=== PATIENT | female | born 1955 | race American Indian/Alaskan Native ===

== ENCOUNTER 2017-11-13 16:49 | Emergency (ER) | payer OTHER ==
[2017-11-13 17:08] VITALS: BP 80/52
[2017-11-13 17:44] LABS: Hemoglobin 12.8 gm/dl (10.1-14.3); Mean Corpuscular HGB Conc 34 % (30-34); Mean Corpuscular Hemoglobin 29 pg (28-32); Mean Corpuscular Volume 85 fl (79-97); Platelet Count 167 K/mm3 (140-440); Red Blood Count 4.47 M/mm3 (3.65-5.03); Red Cell Distribution Width 14.2 % (13.2-15.2)
[2017-11-13 17:55] LABS: Alanine Aminotransferase 76 units/L (7-56); Albumin 3.4 g/dL (3.9-5); BUN/Creatinine Ratio 6; Blood Urea Nitrogen 3 mg/dL (7-17); Calcium 9.1 mg/dL (8.4-10.2); Hemolysis Index 9
== END 2017-11-13 17:25 | disposition left against medical advice (07) ==
LOC: ED 16:49
DX: R42 Dizziness and giddiness (principal); Z53.21 Procedure and treatment not carried out due to patient leaving prior to being seen by health care provider
CPT/HCPCS: 36415; 80053; 85027

== ENCOUNTER 2017-11-19 22:02 | Emergency (ER) | payer OTHER ==
[2017-11-20 01:44] LABS: Eosinophils # (Auto) 0.1 K/mm3 (0.0-0.4); Eosinophils % (Auto) 1.8 % (0.0-4.3); Hematocrit 35.6 % (30.3-42.9); Hemoglobin 11.8 gm/dl (10.1-14.3); Lymphocytes # (Auto) 0.9 K/mm3 (1.2-5.4); Lymphocytes % (Auto) 27.9 % (13.4-35.0); Mean Corpuscular HGB Conc 33 % (30-34); Mean Corpuscular Hemoglobin 29 pg (28-32); Mean Corpuscular Volume 86 fl (79-97); Monocytes # (Auto) 0.3 K/mm3 (0.0-0.8); Monocytes % (Auto) 8.1 % (0.0-7.3); Platelet Count 170 K/mm3 (140-440); Red Blood Count 4.13 M/mm3 (3.65-5.03); Red Cell Distribution Width 14.2 % (13.2-15.2)
[2017-11-20] MEDS ORDERED: NACL 0.9% 1000 ML 1,000 ML IV ONE (01:50)
[2017-11-20 01:57] LABS: BUN/Creatinine Ratio 23; Blood Urea Nitrogen 9 mg/dL (7-17); Calcium 9.3 mg/dL (8.4-10.2); Hemolysis Index 27
--- NOTE | 2017-11-20 02:30 | Emergency Department Report ---
HPI - General Chief Complaint: Skin/Abscess/Foreign Body Time Seen by Provider: 11/20/17 01:40 - HPI HPI: The patient is a 61-year-old female with a history of throat cancer and low setting G-tube placement, and who presents for evaluation of dislodgment of her G-tube . She says that her G-tube came out approximately 2-3 hours ago. The patient denies fever, chills, night sweats, headache, chest pain, dyspnea, abdominal pain, nausea, vomiting, and dysuria, diarrhea, blood in the stool, dark tarry stool, flank pain, genital discharge, inability to pass flatus. She has no pain or complaints otherwise. ED Past Medical Hx - Past Medical History Hx of Cancer: Yes (Esophageal) Additional medical history: Throat CA - Surgical History Additional Surgical History: Port placement, PEG placement - Social History Smoking Status: Former Smoker Substance Use Type: None ED Review of Systems ROS: Stated complaint: FEEDING TUBE FELL OUT Other details as noted in HPI Constitutional: denies: fever ENT: denies: throat or neck pain Respiratory: denies: cough, shortness of breath Cardiovascular: denies: chest pain Endocrine: denies unexplained weight loss or gain Gastrointestinal: denies: abdominal pain, nausea Genitourinary: denies: dysuria Musculoskeletal: denies: leg swelling Skin: denies: rash Neurological: denies: headache Hematological/Lymphatic: denies: easy bleeding or easy bruising Psych: denies sadness or hopelessness Physical Exam - Physical Exam Vital Signs: Vital Signs 11/20/17 11/20/17 00:50 01:00 Temperature 97.7 F 97.7 F Pulse Rate 73 73 Respiratory 16 20 Rate Blood Pressure 81/44 [Left] O2 Sat by Pulse 96 100 Oximetry Physical Exam: General: well-nourished, well-developed, no acute distress Head: Normocephalic, atraumatic Eyes: normal sclera ENT: Mucous membranes are pale and dry Neck: trachea midline, neck supple, No neck stiffness, no cervical adenopathy Respiratory: Breath sounds equal bilaterally, no wheezing, rales, or rhonchi Cardio: S1 and S2 present, no murmurs, rubs, gallops, capillary refill is delayed Abdomen: Normoactive bowel sounds, soft abdomen, no tenderness, G-tube insertion site present to mid upper abdomen Musc: No pitting edema Skin: No rash Neuro: no facial drooping, normal speech Psych: Normal affect ED Course Vital Signs 11/20/17 11/20/17 00:50 01:00 Temperature 97.7 F 97.7 F Pulse Rate 73 73 Respiratory 16 20 Rate Blood Pressure 81/44 [Left] O2 Sat by Pulse 96 100 Oximetry ED Medical Decision Making - Lab Data Result diagrams: 11/20/17 01:13 11/20/17 01:13 - Medical Decision Making The patient was seen and examined by myself. The patient is placed on a director process engineering and continuous pulse ox. On initial evaluation, the patient was found to be in no distress, with low blood pressure although secondary to her dehydration. Evaluation orders were placed. The patient is given 1 L normal saline fluid bolus for treatment of her dehydration. A new G-tube was inserted. KUB with contrast was obtained and confirmed placement of G-tube. The patient was reevaluated and reported that their symptoms were markedly improved. The patient is stable for discharge with outpatient follow-up. The patient is given follow-up and return instructions. The patient expressed understanding and agreed with the plan. The patient is discharged in stable condition. Critical care attestation.: If time is entered above; I have spent that time in minutes in the direct care of this critically ill patient, excluding procedure time. ED Disposition Clinical Impression: Gastrojejunostomy tube dislodgement, Dehydration, Hypovolemia due to dehydration Disposition: - TO HOME OR SELFCARE Is pt being admited?: No Does the pt Need Aspirin: No Condition: Stable Instructions: Tube Feeding (ED) Referrals: PRIMARY CARE, [Primary Care Provider] - 3-5 Days Time of Disposition: 02:29
--- NOTE | 2017-11-20 04:02 | XRay Report ---
FINAL REPORT PROCEDURE: XR G-TUBE STUDY TECHNIQUE: Abdominal radiograph, single supine AP view. HISTORY: Post g-tube placement COMPARISON: No prior studies are available for comparison. FINDINGS: There is a percutaneous gastrostomy tube. Contrast is injected into the tube which collects in the stomach. There is no leakage or loosening. There is no gastric outlet obstruction. IMPRESSION: Percutaneous gastrostomy tube is in proper position and patent.
[2017-11-20 05:24] VITALS: BP 91/56
== END 2017-11-20 05:25 | disposition home or self-care (01) ==
LOC: ED 22:02
DX: K94.23 Gastrostomy malfunction (principal); E86.0 Dehydration; E86.1 Hypovolemia; Z87.891 Personal history of nicotine dependence; Z85.01 Personal history of malignant neoplasm of esophagus
CPT/HCPCS: 36415; 43760; 74018; 80048; 85025; 96360; 96361; 99284; J7030; Q9963

== ENCOUNTER 2018-11-04 00:21 | Emergency (ER) | payer OTHER ==
[2018-11-04 00:36] VITALS: BP 120/77
[2018-11-04] MEDS ORDERED: XYLOCAINE TOPICAL 4% TP ONE (01:14)
--- NOTE | 2018-11-04 01:17 | Emergency Department Report ---
ED General Adult HPI - General Chief complaint: Tube Replacement Stated complaint: FEEDING TUBE MALFUNCTION Time Seen by Provider: 11/04/18 00:53 Source: patient, RN notes reviewed, old records reviewed Mode of arrival: Ambulatory Limitations: No Limitations - History of Present Illness Initial comments: This is a 62-year-old female. Her past medical history includes esophageal cancer. She is dependent on tube feedings. Also has a history of malnutrition. Patient is visiting from [place]. She does not have a local physician that cares for her. She presents to the emergency room with a complaint of accidental dislodgment of feeding tube. The patient does not know what size Iranian feeding tube she has. The patient also endorses discoloration to the bilateral lower extremities for 1 month. She also endorses lower extremity swelling for 1 month. She denies other injuries, denies other complaints. -: Sudden Severity scale (0 -10): 0 Consistency: now resolved Improves with: other (a feeding tube was reinserted in the emergency room, and this resolved the patient's complaint of dislodged feeding tube) - Related Data Home Medications Medication Instructions Recorded Confirmed Last Taken No Known Home Medications [No 02/23/18 02/23/18 Unknown Reported Home Medications] Allergies Allergy/AdvReac Type Severity Reaction Status Date / Time No Known Allergies Allergy Verified 02/23/18 04:27 ED Review of Systems ROS: Stated complaint: FEEDING TUBE MALFUNCTION Other details as noted in HPI Constitutional: denies: fever, malaise ENT: denies: epistaxis Respiratory: denies: cough Cardiovascular: denies: chest pain Gastrointestinal: denies: abdominal pain Genitourinary: denies: dysuria Musculoskeletal: other (lower extremity swelling. Hyperpigmentation to the bilateral lower extremities) Skin: rash Neurological: denies: headache ED Past Medical Hx - Past Medical History Previous Medical History?: Yes Additional medical history: Throat CA - Surgical History Additional Surgical History: Port placement, PEG placement - Social History Smoking Status: Current Every Day Smoker Substance Use Type: None - Medications Home Medications: Home Medications Medication Instructions Recorded Confirmed Last Taken Type No Known Home Medications [No 02/23/18 02/23/18 Unknown History Reported Home Medications] ED Physical Exam - General Limitations: No Limitations General appearance: alert, in no apparent distress - Head Head exam: Present: atraumatic, normocephalic - Eye Eye exam: Present: normal appearance, EOMI. Absent: nystagmus - ENT ENT exam: Present: normal exam, normal orophraynx, mucous membranes moist, normal external ear exam - Neck Neck exam: Present: normal inspection, full ROM. Absent: tenderness, meningismus - Respiratory Respiratory exam: Present: normal lung sounds bilaterally. Absent: respiratory distress - Cardiovascular Cardiovascular Exam: Present: regular rate, normal rhythm, normal heart sounds. Absent: bradycardia, tachycardia, irregular rhythm, systolic murmur, diastolic murmur, rubs, gallop - GI/Abdominal GI/Abdominal exam: Present: soft, other (stoma is noted in the left lower quadrant, with no redness, pus or streaking.). Absent: distended, tenderness, guarding, rebound, rigid, pulsatile mass - Extremities Exam Extremities exam: Present: normal inspection (hyperpigmentation and scaly skin noted to the lower extremities. There is no redness, pus or streaking.), full ROM, pedal edema, other (extremities). Absent: calf tenderness - Back Exam Back exam: Present: normal inspection, full ROM. Absent: tenderness, CVA tenderness (R), CVA tenderness (L), paraspinal tenderness, vertebral tenderness - Neurological Exam Neurological exam: Present: alert, normal gait, other (Extraocular movements intact. Tongue midline. No facial droop. Facial sensation intact to light touch in the V1, V2, V3 distribution bilaterally. 5 and 5 strength in 4 extremities.. Sensation is intact to light touch in 4 extremities.) - Psychiatric Psychiatric exam: Present: normal affect, normal mood - Skin Skin exam: Present: warm, dry, intact, normal color. Absent: rash ED Course Vital Signs 11/04/18 00:35 Temperature 97.8 F Pulse Rate 88 Respiratory 18 Rate Blood Pressure 120/77 [Left] O2 Sat by Pulse 99 Oximetry - Procedure Description Procedures done: Stoma is cleansed with alcohol swabs and typical aseptic fashion. A 16 Iranian feeding tube is gently inserted through the stoma, after liberal application of sterile jelly. Stoma is inserted with minimal effort, and balloon is inflated with 7 mL of sterile saline. Postprocedure x-ray confirms appropriate placement. The patient tolerated this procedure adequately. ED Medical Decision Making - Lab Data Vital Signs 11/04/18 00:35 Temperature 97.8 F Pulse Rate 88 Respiratory 18 Rate Blood Pressure 120/77 [Left] O2 Sat by Pulse 99 Oximetry - Radiology Data Radiology results: report reviewed, image reviewed Print Report Referring Physician: SUMAN ALCARAZ Patient Name: SUSHILA LORENZ Date of : 1955 Sex: Female Report Date: 2018-11-04 Report Status: Finalized Findings [facility] [address] [id number] XRay Report Signed Patient: SUSHILA LORENZ MR#: [id number] : 1955 Acct:[id number] Age/Sex: 62 / F ADM Date: 11/04/18 Loc: ED Attending Dr: Ordering Physician: SUMAN ALCARAZ MD Date of Service: 11/04/18 Procedure(s): XR g-tube study Accession Number(s): [id number] cc: SUMAN ALCARAZ MD Fluoro Time In Minutes: 0.0 PROCEDURE: Abdomen. TECHNIQUE: Portable AP supine views of the abdomen before and after contrast injection. HISTORY: s/p tube placement COMPARISONS: Abdomen 11/20/2017. FINDINGS: On the first radiograph there is a gastrostomy tube in the left upper quadrant. On the second radiograph contrast outlines the stomach and a portion of the duodenum. IMPRESSION: Satisfactory gastrostomy tube placement. This document is electronically signed by Suman Garza MD., November 04 2018 02:07:02 AM ET Transcribed By: [facility] Dictated By: SUMAN GARZA MD Electronically Authenticated By: SUMAN GARZA MD Signed Date/Time: 11/04/18 0208 - Medical Decision Making Differential diagnosis, including but not limited to: Feeding tube replacement, chronic edema, hyperpigmentation Assessment and plan: 62-year-old female with a primary complaint tube dislodgment. This has been corrected. She has secondary endorsement of lower extremity swelling and skin plaques and crusting, present for weeks. She is not tachycardic, she is not hypoxic, her lower extremity swelling is symmetric, and appears to be edematous in nature. Her lower extremity complaints. To be chronic in nature. They do not appear to represent an emergent medical condition. The patient was counseled to follow up with an outpatient primary care doctor or electrical sign servicer for outpatient management of tube feedings. She can follow up with the primary care doctor for her chronic lower extremity complaints. Critical care attestation.: If time is entered above; I have spent that time in minutes in the direct care of this critically ill patient, excluding procedure time. ED Disposition Clinical Impression: Encounter for feeding tube placement Disposition: DC- TO HOME OR SELFCARE Is pt being admited?: No Does the pt Need Aspirin: No Condition: Stable Additional Instructions: Continue current outpatient medications. Follow up with the primary care doctor for outpatient management of chronic lower extremity swelling and discoloration. Follow up with a electrical sign servicer for outpatient management of feeding tube. Return to the emergency room right away with him, worsened or different symptoms, or symptoms not present on the initial emergency room evaluation. Referrals: BRISA ASH MD [Primary Care Provider] - 3-5 Days [facility] [Provider Group] - 3-5 Days [facility] [Provider Group] - 3-5 Days
--- NOTE | 2018-11-04 02:08 | XRay Report ---
PROCEDURE: Abdomen. TECHNIQUE: Portable AP supine views of the abdomen before and after contrast injection. HISTORY: s/p tube placement COMPARISONS: Abdomen 11/20/2017. FINDINGS: On the first radiograph there is a gastrostomy tube in the left upper quadrant. On the second radiogr aph contrast outlines the stomach and a portion of the duodenum. IMPRESSION: Satisfactory gastrostomy tube placement. This document is electronically signed by Suman Ventura MD., November 04 2018 02:07:02 AM ET
== END 2018-11-04 02:36 | disposition home or self-care (01) ==
LOC: ED 00:21
DX: K94.23 Gastrostomy malfunction (principal); F17.200 Nicotine dependence, unspecified, uncomplicated
CPT/HCPCS: 74018; 99283; Q9963

== ENCOUNTER 2019-06-13 22:39 | Emergency (ER) | payer SELFPAY ==
--- NOTE | 2019-06-14 02:19 | Emergency Department Report ---
ED General Adult HPI - General Chief complaint: Tube Replacement Stated complaint: STOMACH PAIN FEEDING TUBE Time Seen by Provider: 06/14/19 01:36 Source: patient Mode of arrival: Ambulatory Limitations: No Limitations - History of Present Illness Initial comments: 63 yo F, hx esophageal cancer presents to ED because PEG tube came out 30 minutes prior to arrival. -: minutes(s) (30) Location: abdomen Associated Symptoms: denies other symptoms - Related Data Home Medications Medication Instructions Recorded Confirmed Last Taken No Known Home Medications [No 02/23/18 02/23/18 Unknown Reported Home Medications] Allergies Allergy/AdvReac Type Severity Reaction Status Date / Time No Known Allergies Allergy Verified 02/23/18 04:27 ED Review of Systems ROS: Stated complaint: STOMACH PAIN FEEDING TUBE Other details as noted in HPI Comment: All other systems reviewed and negative Constitutional: denies: chills, fever Gastrointestinal: denies: abdominal pain ED Past Medical Hx - Past Medical History Previous Medical History?: Yes Additional medical history: Throat CA - Surgical History Past Surgical History?: Yes Additional Surgical History: Port placement, PEG placement - Social History Smoking Status: Current Some Day Smoker Substance Use Type: None - Medications Home Medications: Home Medications Medication Instructions Recorded Confirmed Last Taken Type No Known Home Medications [No 02/23/18 02/23/18 Unknown History Reported Home Medications] ED Physical Exam - General Limitations: No Limitations General appearance: alert, in no apparent distress - Head Head exam: Present: atraumatic, normocephalic - Eye Eye exam: Present: normal appearance - ENT ENT exam: Present: mucous membranes moist - Neck Neck exam: Present: normal inspection - Respiratory Respiratory exam: Present: normal lung sounds bilaterally. Absent: respiratory distress - Cardiovascular Cardiovascular Exam: Present: regular rate, normal rhythm - GI/Abdominal GI/Abdominal exam: Present: soft, other (gastrostomy present in LUQ). Absent: distended, tenderness - Extremities Exam Extremities exam: Present: normal inspection - Neurological Exam Neurological exam: Present: alert, oriented X3 - Psychiatric Psychiatric exam: Present: normal affect, normal mood - Skin Skin exam: Present: warm, dry, intact, normal color ED Course Vital Signs 06/13/19 06/14/19 22:46 01:40 Temperature 97.9 F 98.3 F Pulse Rate 90 85 Respiratory 20 16 Rate Blood Pressure 104/66 Blood Pressure 112/60 [Left] O2 Sat by Pulse 98 98 Oximetry - Feeding Tube Replacement Reason for Replacement: fell out Initial Tube Inserted: greater than 4 weeks Type of Tube: gastrostomy Use of Tube: medications and feeding Insertion Site Prior to Procedure: clean Tube Used for Reinsertion: other (16F PEG tube) Luxembourgish Tube Size (F): 16 Balloon Size (mls): 3 Verification of Placement: gastrograffin injection Tube Secured by: G-tube attachment device Patient Tolerated Procedure: well Critical care attestation.: If time is entered above; I have spent that time in minutes in the direct care of this critically ill patient, excluding procedure time. ED Disposition Clinical Impression: Encounter for feeding tube placement Disposition: - TO HOME OR SELFCARE Is pt being admited?: No Condition: Stable Instructions: How to Use and Care for Your PEG Tube (ED) Referrals: PRIMARY CARE, [Referring] - 3-5 Days Time of Disposition: 03:01
--- NOTE | 2019-06-14 02:54 | XRay Report ---
ABDOMEN 2 VIEW(S) INDICATION / CLINICAL INFORMATION: PEG replacement. COMPARISON: G-tube study from 11/04/2018 FINDINGS: TUBES / LINES: Gastric tube was injected with 30 mL of Gastrografin. There is intraluminal contrast w ithin the stomach and duodenum with no contrast extravasation. BOWEL GAS PATTERN: Moderate colonic stool burden suggesting constipation. FREE AIR / EXTRALUMINAL GAS: None seen. ADDITIONAL FINDINGS: No significant additional findings. IMPRESSION: 1. Intraluminal tip of the gastric tube. 2. Findings of constipation. Signer Name: Shaka Martinez MD Signed: 06/14/2019 2:50 AM Workstation Name: [id number]
[2019-06-14 04:20] VITALS: BP 99/55
== END 2019-06-14 03:30 | disposition home or self-care (01) ==
LOC: ED 22:39
DX: Z43.1 Encounter for attention to gastrostomy (principal); Z85.01 Personal history of malignant neoplasm of esophagus; F17.200 Nicotine dependence, unspecified, uncomplicated
CPT/HCPCS: 43762; 74018; 99282; Q9963

== ENCOUNTER 2019-06-14 06:47 | Emergency (ER) | payer SELFPAY ==
[2019-06-14] MEDS ORDERED: LIDOCAINE VISCOUS 2% 15 ML ORAL LIQD ONE (09:19)
--- NOTE | 2019-06-14 09:35 | Emergency Department Report ---
<MAURICE GOMEZ - Last Filed: 06/14/19 10:16> ED General Adult HPI - General Chief complaint: Tube Replacement Stated complaint: FEEDING TUBE CAME OUT Time Seen by Provider: 06/14/19 09:28 - Related Data Home Medications Medication Instructions Recorded Confirmed Last Taken No Known Home Medications [No 02/23/18 02/23/18 Unknown Reported Home Medications] Allergies Allergy/AdvReac Type Severity Reaction Status Date / Time No Known Allergies Allergy Verified 02/23/18 04:27 ED Past Medical Hx - Medications Home Medications: Home Medications Medication Instructions Recorded Confirmed Last Taken Type No Known Home Medications [No 02/23/18 02/23/18 Unknown History Reported Home Medications] ED Disposition Clinical Impression: Encounter for feeding tube placement, Complication of feeding tube Disposition: - TO HOME OR SELFCARE Condition: Stable Instructions: How to Use and Care for Your PEG Tube (ED) Referrals: [facility] [Provider Group] - 3-5 Days <HANY JONES - Last Filed: 06/14/19 11:34> ED General Adult HPI - General Source: patient Mode of arrival: Ambulatory Limitations: No Limitations - History of Present Illness Initial comments: 63-year-old asthmatic female with a reported past medical history of throat cancer utilization of feeding tube present emergency department complaining of a feeding tube dislodgment of unspecified time. She states that she she had the tube placed yesterday or very corporate strategy intern and when she gotten home and attempted to remove the tape which had dislodged feeding tube. She reports having had a history of feeding tube however the duration was not normal and she had it replaced initially anywhere from 4 or more weeks ago. She reports no abdominal pain. Portable fever, chills, sweats or chest pain no diarrhea no nausea no vomiting. -: Sudden Radiation: non-radiation Improves with: none Worsens with: none Associated Symptoms: denies other symptoms Treatments Prior to Arrival: none ED Review of Systems ROS: Stated complaint: FEEDING TUBE CAME OUT Other details as noted in HPI Comment: All other systems reviewed and negative ED Past Medical Hx - Past Medical History Previous Medical History?: Yes Additional medical history: Throat CA - Surgical History Past Surgical History?: Yes Additional Surgical History: Port placement, PEG placement - Social History Smoking Status: Light Tobacco Smoker Substance Use Type: None ED Physical Exam - General Limitations: No Limitations General appearance: alert, in no apparent distress - Head Head exam: Present: atraumatic, normocephalic - Eye Eye exam: Present: normal appearance, PERRL, EOMI Pupils: Present: normal accommodation - ENT ENT exam: Present: mucous membranes moist - Neck Neck exam: Present: normal inspection - Respiratory Respiratory exam: Present: normal lung sounds bilaterally. Absent: respiratory distress - Cardiovascular Cardiovascular Exam: Present: regular rate, normal rhythm. Absent: systolic murmur, diastolic murmur, rubs, gallop - GI/Abdominal GI/Abdominal exam: Present: soft, normal bowel sounds - Extremities Exam Extremities exam: Present: normal inspection - Back Exam Back exam: Present: normal inspection. Absent: CVA tenderness (R), CVA tenderness (L) - Neurological Exam Neurological exam: Present: alert, oriented X3, CN II-XII intact - Psychiatric Psychiatric exam: Present: normal affect, normal mood - Skin Skin exam: Present: warm, dry, intact, normal color. Absent: rash ED Course Vital Signs 06/14/19 06:55 Temperature 97.9 F Pulse Rate 102 H Respiratory 18 Rate Blood Pressure 121/72 O2 Sat by Pulse 98 Oximetry - Reevaluation(s) Reevaluation #1: 06/14/19 09:18 Discussed the case with Dr. Gomez the attending with attempted to place the f eeding tube was unsuccessful on 2 attempts. A lot of resistance was met. No bleeding no wound discharge plan is to consult with GI for further evaluation and treatment options - Consultations Consultation #1: 06/14/19 09:34 Call back from her neurologist whom has been made aware of inability to replace the feeding tube. The patient's name and phone number was provided along with a history of the plan is for them to come see the patient at bedside to devise a plan to replace the feeding tube ED Medical Decision Making - Lab Data Result diagrams: 06/14/19 09:59 06/14/19 09:59 - Medical Decision Making 8-year-old female is status post PEG tube replacement earlier this morning or yesterday. Presents emergency department due to a accidental dislodgment. The ED physician Dr. Gomez try to replace the feeding tube was unsuccessful at the 2 attempts. Gastric neurology was consulted and was able to reintroduce the PEG tube to his proper location and inflated the cuff. It is possible that the previous cuff was not inflated which may have led to the dislodgment. The procedure was tolerated well with no complications plan is to discharge home with follow-up Critical care attestation.: If time is entered above; I have spent that time in minutes in the direct care of this critically ill patient, excluding procedure time. ED Disposition Is pt being admited?: No Does the pt Need Aspirin: No
[2019-06-14 10:19] LABS: Basophils # (Auto) 0.1 K/mm3 (0.0-0.1); Eosinophils # (Auto) 0.2 K/mm3 (0.0-0.4); Eosinophils % (Auto) 3.8 % (0.0-4.3); Hematocrit 41.1 % (30.3-42.9); Hemoglobin 13.8 gm/dl (10.1-14.3); Lymphocytes # (Auto) 1.5 K/mm3 (1.2-5.4); Lymphocytes % (Auto) 26.6 % (13.4-35.0); Mean Corpuscular HGB Conc 34 % (30-34); Mean Corpuscular Volume 80 fl (79-97); Monocytes # (Auto) 0.4 K/mm3 (0.0-0.8); Monocytes % (Auto) 6.5 % (0.0-7.3); Platelet Count 229 K/mm3 (140-440); Red Blood Count 5.14 M/mm3 (3.65-5.03); Red Cell Distribution Width 13.8 % (13.2-15.2)
--- NOTE | 2019-06-14 10:24 | Gastroenterology Consultation ---
<TIMOTHY DEAN - Last Filed: 06/14/19 10:37> History of Present Illness - Reason for Consult Consult date: 06/14/19 dislodged PEG Requesting physician: MAURICE GOMEZ - History of Present Illness Patient is a 63 y/o female (lives in [place] but here visiting daughter) with PMH of esophageal cancer (s/p radiation/chemo/PEG) who presented to ED for dislodged PEG to which GI has been consulted (was seen here yesterday for similar complaint with G-tube replaced; G-tube study confirmed position). Patient reports she with removing PEG dressing this am ~0600 when the "tube just fell out". G-tube w/o inflated balloon noted after dislodgment per pt. She states she is able to tolerate small amount of PO intake but uses PEG for supplemental feedings. Denies fever, CP, Sob, wt loss, abd pain, N/V, or LGI symptoms. Upon exam, abdomen benign with prior PEG site w/o redness, swelling, odor, drainage, or bleeding. Past History Past Medical History: other (esophageal CA) Past Surgical History: Other (PEG, port placement) Social history: smoking Family history: no significant family history Medications and Allergies Allergies Allergy/AdvReac Type Severity Reaction Status Date / Time No Known Allergies Allergy Verified 02/23/18 04:27 Home Medications Medication Instructions Recorded Confirmed Last Taken Type No Known Home Medications [No 02/23/18 02/23/18 Unknown History Reported Home Medications] Active Meds: medications reviewed/updated as required Review of Systems - Review of Systems All systems: negative Gastrointestinal: other (dislodged PEG), no abdominal pain, no nausea, no vomiting Exam - Constitutional Vital Signs: Temp Pulse Resp BP Pulse Ox 97.9 F 102 H 18 121/72 98 06/14/19 06:55 06/14/19 06:55 06/14/19 06:55 06/14/19 06:55 06/14/19 06:55 General appearance: no acute distress - EENT Eyes: PERRL, EOM intact ENT: hearing intact - Respiratory Respiratory effort: normal - Cardiovascular Rhythm: regular - Gastrointestinal General gastrointestinal: Present: soft, non-tender, non-distended, normal bowel sounds - Neurologic Neurological: alert and oriented x3 - Labs CBC & Chem 7: 06/14/19 09:59 Lab Results: Laboratory Results - last 24 hr 06/14/19 09:59 WBC 5.6 RBC 5.14 H Hgb 13.8 Hct 41.1 MCV 80 MCH 27 L MCHC 34 RDW 13.8 Plt Count 229 Lymph % (Auto) 26.6 Canyon % (Auto) 6.5 Eos % (Auto) 3.8 Baso % (Auto) 1.0 Lymph # 1.5 Canyon # 0.4 Eos # 0.2 Baso # 0.1 Seg Neutrophils % 62.1 Seg Neutrophils # 3.5 Assessment and Plan 1.dislodged PEG 2.H/o esophageal CA (s/p radiation/chemo) -stoma w/o s/s of infection or bleeding -PEG replaced per Dr. Ballard with 16Fr G-tube using aseptic technique. Patient tolerated well. Position confirmed per auscultation. -split gauze dressing PRN -daily PEG care -okay to resume TFs -no further recommendations per GI standpoint -patient okay to be discharged home with f/u with primary GI upon returning home -will sign off, please call if needed <NAOMI BALLARD - Last Filed: 06/14/19 10:51> Exam - Constitutional Vital Signs: Temp Pulse Resp BP Pulse Ox 97.9 F 102 H 18 121/72 98 06/14/19 06:55 06/14/19 06:55 06/14/19 06:55 06/14/19 06:55 06/14/19 06:55 - Labs CBC & Chem 7: 06/14/19 09:59 06/14/19 09:59 Lab Results: Laboratory Results - last 24 hr 06/14/19 06/14/19 09:59 09:59 WBC 5.6 RBC 5.14 H Hgb 13.8 Hct 41.1 MCV 80 MCH 27 L MCHC 34 RDW 13.8 Plt Count 229 Lymph % (Auto) 26.6 Canyon % (Auto) 6.5 Eos % (Auto) 3.8 Baso % (Auto) 1.0 Lymph # 1.5 Canyon # 0.4 Eos # 0.2 Baso # 0.1 Seg Neutrophils % 62.1 Seg Neutrophils # 3.5 Sodium 141 Potassium 3.7 Chloride 102.7 Carbon Dioxide 22 Anion Gap 20 BUN 9 Creatinine 0.5 L Estimated GFR > 60 BUN/Creatinine Ratio 18 Glucose 101 H Calcium 10.0 Magnesium 1.90 Total Bilirubin 0.40 AST 18 ALT 17 Alkaline Phosphatase 104 Total Protein 7.8 Albumin 4.6 Albumin/Globulin Ratio 1.4 Assessment and Plan Patient seen and examined on 06/14/2019. Agree with A/P as stated. Bedside PEG replacement performed. Previous PEG site stoma examined and w/o s/o infection or bleeding. A new 16F replacement tube placed using aseptic technique. 7 cc saline placed to inflate the internal balloon. Auscultation of gurgling noise over the upper abdomen, confirmation of position. No immediate complications noted. Patient tolerated the procedure well.
[2019-06-14 10:41] LABS: Alanine Aminotransferase 17 units/L (7-56); Albumin 4.6 g/dL (3.9-5); BUN/Creatinine Ratio 18; Blood Urea Nitrogen 9 mg/dL (7-17); Hemolysis Index 15
[2019-06-14 10:59] LABS: Bilirubin,Direct < 0.2 mg/dL (0-0.2)
[2019-06-14 11:40] VITALS: BP 121/68
[2019-06-21] MEDS ORDERED: LIDOCAINE VISCOUS 2% 15 ML ORAL LIQD PO ONE (09:00)
== END 2019-06-14 11:40 | disposition home or self-care (01) ==
LOC: ED 06:47
DX: Z43.1 Encounter for attention to gastrostomy (principal); F17.200 Nicotine dependence, unspecified, uncomplicated; Z85.01 Personal history of malignant neoplasm of esophagus
CPT/HCPCS: 36415; 80048; 80076; 83735; 85025

== ENCOUNTER 2019-12-26 05:24 | Emergency (ER) | payer SELFPAY ==
--- NOTE | 2019-12-26 13:28 | Emergency Department Report ---
ED General Adult HPI - General Chief complaint: Tube Replacement Stated complaint: DISPLACED FEEDING TUBE Time Seen by Provider: 12/26/19 12:47 Source: patient Mode of arrival: Ambulatory Limitations: No Limitations - History of Present Illness Initial comments: Patient is 64 years old female presented to the ER stating that her G-tube fell off yesterday but however she kept it inside. Patient denied any other symptoms. Patient denied any fever or chills. Patient denied any discharge around the G-tube. Severity scale (0 -10): 1 - Related Data Home Medications Medication Instructions Recorded Confirmed Last Taken No Known Home Medications [No 02/23/18 02/23/18 Unknown Reported Home Medications] Allergies Allergy/AdvReac Type Severity Reaction Status Date / Time No Known Allergies Allergy Verified 02/23/18 04:27 ED Review of Systems ROS: Stated complaint: DISPLACED FEEDING TUBE Other details as noted in HPI Comment: All other systems reviewed and negative Constitutional: denies: chills, fever Cardiovascular: denies: chest pain Gastrointestinal: denies: abdominal pain, nausea, vomiting Neurological: denies: headache ED Past Medical Hx - Past Medical History Previous Medical History?: Yes Additional medical history: Throat CA - Surgical History Past Surgical History?: Yes Additional Surgical History: Port placement, PEG placement - Social History Smoking Status: Current Some Day Smoker - Medications Home Medications: Home Medications Medication Instructions Recorded Confirmed Last Taken Type No Known Home Medications [No 02/23/18 02/23/18 Unknown History Reported Home Medications] ED Physical Exam - General Limitations: No Limitations General appearance: alert, in no apparent distress - Head Head exam: Present: atraumatic, normocephalic, normal inspection - ENT ENT exam: Present: normal exam, normal orophraynx, mucous membranes moist - Respiratory Respiratory exam: Present: normal lung sounds bilaterally - Cardiovascular Cardiovascular Exam: Present: regular rate, normal rhythm, normal heart sounds - GI/Abdominal GI/Abdominal exam: Present: soft, normal bowel sounds. Absent: distended, tenderness, guarding, rebound, rigid, mass, bruit, pulsatile mass - Extremities Exam Extremities exam: Present: normal inspection, full ROM, normal capillary refill - Neurological Exam Neurological exam: Present: alert, oriented X3, CN II-XII intact - Skin Skin exam: Present: warm, intact, normal color ED Course Vital Signs 12/26/19 12/26/19 12/26/19 05:28 11:18 13:18 Temperature 98.1 F 98.6 F Pulse Rate 100 H 78 73 Respiratory 18 16 18 Rate Blood Pressure 125/76 129/70 Blood Pressure 122/76 [Right] O2 Sat by Pulse 99 98 100 Oximetry - Feeding Tube Replacement Reason for Replacement: fell out Initial Tube Inserted: greater than 4 weeks Type of Tube: gastrostomy Use of Tube: medications and feeding Insertion Site Prior to Procedure: clean Tube Used for Reinsertion: other (16 Liberian) Verification of Placement: auscultation Tube Secured by: tape/dressing Patient Tolerated Procedure: well, no complications Additional Comments: G-tube replaced by me using a 16 Liberian tube size. Patient tolerated procedure well with no complication. ED Medical Decision Making - Medical Decision Making Patient is 64 years old female presented to the ER stating that her G-tube fell off yesterday but however she kept it inside. Patient denied any other symptoms. Patient denied any fever or chills. Patient denied any discharge around the G-tube. G-tube replaced by me using a 16 Liberian tube size. Patient tolerated procedure well with no complication. Critical care attestation.: If time is entered above; I have spent that time in minutes in the direct care of this critically ill patient, excluding procedure time. ED Disposition Clinical Impression: Encounter for feeding tube placement Disposition: DC-01 TO HOME OR SELFCARE Is pt being admited?: No Condition: Stable Instructions: How to Use and Care for Your PEG Tube (ED) Referrals: PRIMARY CARE [Primary Care Provider] - 3-5 Days
[2019-12-26 14:23] VITALS: BP 122/72
== END 2019-12-26 14:23 | disposition home or self-care (01) ==
LOC: ED 05:24
DX: Z43.1 Encounter for attention to gastrostomy (principal); F17.200 Nicotine dependence, unspecified, uncomplicated
CPT/HCPCS: 99282

== ENCOUNTER 2020-12-04 07:23 | Emergency (ER) | payer MEDICAID ==
[2020-12-04 11:44] VITALS: BP 111/76
--- NOTE | 2020-12-04 14:51 | Emergency Department Report ---
HPI - General Chief Complaint: Medical Clearance Time Seen by Provider: 12/04/20 14:36 - HPI HPI: This is a 64-year-old -Serbian female presents to the emergency department with a complaint of having her feeding tube fall out about 2 days ago. The patient has had a PEG tube in place for about 1 year secondary to history of throat cancer. She has been seen here multiple times in the past for issues with her G-tube. She says that she waited for about 2 days to come in because she did not have a ride. She denies any abdominal pain, fever, purulent discharge from the PEG tube site. Patient also, secondarily, complains of a 1 month history of ringing in her ears. She denies any ear pain, decreased hearing. She has not taken anything for symptoms prior to presentation today. ED Past Medical Hx - Past Medical History Hx of Cancer: Yes Additional medical history: Throat CA - Surgical History Additional Surgical History: Port placement, PEG placement - Social History Smoking Status: Current Some Day Smoker Substance Use Type: None - Medications Home Medications: Home Medications Medication Instructions Recorded Confirmed Last Taken Type No Known Home Medications [No 02/23/18 02/23/18 Unknown History Reported Home Medications] ED Review of Systems ROS: Stated complaint: TUBE FEEDING FELL OUT Other details as noted in HPI Comment: All other systems reviewed and negative Constitutional: denies: chills, fever Eyes: denies: eye pain, vision change ENT: other (1 month hx of ear ringing). denies: ear pain, hearing loss Respiratory: denies: cough, shortness of breath Cardiovascular: denies: chest pain, palpitations Gastrointestinal: denies: abdominal pain, vomiting Genitourinary: denies: dysuria, discharge Musculoskeletal: denies: back pain, arthralgia Skin: denies: rash, lesions Neurological: denies: headache, weakness Physical Exam - Physical Exam Vital Signs: Vital Signs 12/04/20 12/04/20 07:46 11:41 Temperature 98.5 F 97.7 F Pulse Rate 83 82 Respiratory 20 18 Rate Blood Pressure 121/68 111/76 O2 Sat by Pulse 100 99 Oximetry Physical Exam: GENERAL: The patient is well-developed well-nourished. HENT: Normocephalic. Atraumatic. Patient has moist mucous membranes. Normal appearing bilateral external ear canals and tympanic membranes. EYES: Extraocular motions are intact. NECK: Supple. Trachea is midline. CHEST/LUNGS: Clear to auscultation. There is no respiratory distress noted. HEART/CARDIOVASCULAR: Regular. There is no tachycardia. There is no murmur. ABDOMEN: Abdomen is soft, nontender. Patient has normal bowel sounds. SKIN: Skin is warm and dry. There is a small circular opening, where the patient previously had the feeding tube, that appears clean without surrounding erythema or purulent discharge. NEURO: The patient is awake, alert, and oriented. The patient is cooperative. The patient has no focal neurologic deficits. Normal speech. MUSCULOSKELETAL: There is no tenderness or deformity. There is no limitation range of motion. ED Course Vital Signs 12/04/20 12/04/20 07:46 11:41 Temperature 98.5 F 97.7 F Pulse Rate 83 82 Respiratory 20 18 Rate Blood Pressure 121/68 111/76 O2 Sat by Pulse 100 99 Oximetry - Feeding Tube Replacement Reason for Replacement: fell out Initial Tube Inserted: greater than 4 weeks Type of Tube: gastrostomy Use of Tube: medications and feeding Insertion Site Prior to Procedure: clean Tube Used for Reinsertion: DONNIE Portuguese Tube Size (F): 18 Balloon Size (mls): 8 Verification of Placement: gastrograffin injection Patient Tolerated Procedure: well ED Medical Decision Making - Medical Decision Making The patient's primary reason for her visit was that her feeding tube came out about 2 days ago. I was able to easily replace the 18 Portuguese feeding tube with a DONNIE tube and G-tube study showed appropriate placement. Patient also complains of a 1 month history of some nonspecific ringing of the ears. Normal-appearing external ear canals and tympanic membranes. She denies any decreased hearing. Patient has been given outpatient referrals for primary care and otolaryngology. Critical Care Time: No Critical care attestation.: If time is entered above; I have spent that time in minutes in the direct care of this critically ill patient, excluding procedure time. ED Disposition Clinical Impression: PEG tube malfunction, Encounter for feeding tube placement, Ringing in ears Disposition: TO HOME OR SELFCARE Is pt being admited?: No Condition: Stable Instructions: How to Care for a Feeding Tube, Gastrostomy Tube Replacement Additional Instructions: Please follow-up with a primary care physician. I have given you a referral for a local primary care physician, Dr. Hollins, and a primary care clinic, [facility]. I have also given you a referral for a local ENT, Dr. Perkins, to follow-up regarding the 1 month history of ringing in your ears. Return to the emergency department with any worsening of your symptoms, new or concerning symptoms not addressed during this current emergency department visit, or with any acute distress. Referrals: PRIMARY CAREMD [Primary Care Provider] - 2-3 Days LIZETT HOLLINS MD [Staff Physician] - 2-3 Days BOLIVAR PERKINS MD [Staff Physician] - 2-3 Days [facility] [Provider Group] - 2-3 Days Time of Disposition: 15:16
--- NOTE | 2020-12-04 15:24 | XRay Report ---
X-RAY G-TUBE STUDY INDICATION / CLINICAL INFORMATION: G tube placement. COMPARISON: 06/14/2019 FINDINGS: TUBES / LINES: Gastric tube balloon projects over the stomach. 30 mL of Gastrografin was injected thr ough the tube. There is intraluminal contrast seen in the stomach and proximal small bowel. No contra st extravasation. Moderate stool burden seen throughout the colon. BOWEL GAS PATTERN: No significant abnormality. FREE AIR / EXTRALUMINAL GAS: None seen. ADDITIONAL FINDINGS: No significant additional findings. IMPRESSION: 1. Intraluminal position of gastric tube. 2. Findings of constipation. Signer Name: Thomas Parrish MD Signed: 12/04/2020 3:20 PM Workstation Name: [email or web address]
== END 2020-12-04 15:59 | disposition home or self-care (01) ==
LOC: ED 07:23
DX: K94.29 Other complications of gastrostomy (principal)
CPT/HCPCS: 43762; 74018; 99283; Q9967

== ENCOUNTER 2021-10-18 10:24 | Emergency (ER) | payer SELFPAY ==
--- NOTE | 2021-10-18 22:51 | Emergency Department Report ---
ED General Adult HPI - General Chief complaint: Tube Replacement Stated complaint: FEEFING TUB FELL OUT Time Seen by Provider: 10/18/21 22:47 Source: patient Mode of arrival: Ambulatory Limitations: No Limitations - History of Present Illness Initial comments: Patient is 65 years old female presented to the ER stating that her G-tube fell out. Patient denied any other complaint. Severity scale (0 -10): 0 - Related Data Home Medications Medication Instructions Recorded Confirmed Last Taken No Known Home Medications [No 02/23/18 02/23/18 Unknown Reported Home Medications] Allergies Allergy/AdvReac Type Severity Reaction Status Date / Time No Known Allergies Allergy Verified 12/04/20 07:41 ED Review of Systems ROS: Stated complaint: FEEFING TUB FELL OUT Other details as noted in HPI Comment: All other systems reviewed and negative Constitutional: denies: chills, fever Respiratory: denies: cough, shortness of breath, SOB with exertion Cardiovascular: denies: chest pain, palpitations Gastrointestinal: denies: abdominal pain, nausea Neurological: denies: headache, weakness ED Past Medical Hx - Past Medical History Previous Medical History?: Yes Hx of Cancer: Yes Additional medical history: Throat CA, feeding tube - Surgical History Past Surgical History?: Yes Additional Surgical History: Port placement, PEG placement - Social History Smoking Status: Current Some Day Smoker Substance Use Type: None - Medications Home Medications: Home Medications Medication Instructions Recorded Confirmed Last Taken Type No Known Home Medications [No 02/23/18 02/23/18 Unknown History Reported Home Medications] ED Physical Exam - General Limitations: No Limitations General appearance: alert, in no apparent distress - Head Head exam: Present: atraumatic, normocephalic, normal inspection - Eye Eye exam: Present: normal appearance - ENT ENT exam: Present: normal exam, normal orophraynx, mucous membranes moist - Respiratory Respiratory exam: Present: normal lung sounds bilaterally - Cardiovascular Cardiovascular Exam: Present: regular rate, normal rhythm, normal heart sounds - GI/Abdominal GI/Abdominal exam: Present: soft, normal bowel sounds. Absent: distended, tenderness, guarding, rebound, rigid, organomegaly, mass, bruit, pulsatile mass, hernia - Extremities Exam Extremities exam: Present: normal inspection, normal capillary refill - Back Exam Back exam: Present: normal inspection. Absent: CVA tenderness (R), CVA tenderness (L) - Neurological Exam Neurological exam: Present: alert, oriented X3, CN II-XII intact - Psychiatric Psychiatric exam: Present: normal mood - Skin Skin exam: Present: warm, intact, normal color ED Course Vital Signs 10/18/21 10:47 Temperature 97.5 F L Pulse Rate 83 Respiratory 18 Rate Blood Pressure 97/67 [Right] O2 Sat by Pulse 98 Oximetry ED Medical Decision Making - Medical Decision Making Patient is 65 years old female presented to the ER stating that her G-tube fell out. Patient denied any other complaint. 20 Kosovan G-tube placed by me. No complication. Placement confirmed with G- tube Gastrografin study. Critical care attestation.: If time is entered above; I have spent that time in minutes in the direct care of this critically ill patient, excluding procedure time. ED Disposition Clinical Impression: Gastrostomy tube dysfunction Disposition: 01 HOME / SELF CARE / HOMELESS Is pt being admited?: No Condition: Stable Instructions: PEG Tube Home Guide, [id number] Referrals: PRIMARY CARE, [Referring] - 3-5 Days
--- NOTE | 2021-10-19 | XRay Report ---
ABDOMEN 2 VIEWS INDICATION / CLINICAL INFORMATION: G-tube replacement.. COMPARISON: None available. TECHNIQUE: Supine AP abdomen was acquired prior to and following administration of 30 cc Gastrografin via existing G-tube. FINDINGS: TUBES / LINES: Percutaneous gastrostomy tube is present with balloon positioned within the mid fundus . Contrast extends through the first portion of the duodenum. BOWEL GAS PATTERN: No significant abnormality. FREE AIR / EXTRALUMINAL GAS: None seen. ADDITIONAL FINDINGS: No significant additional findings. CHEST: Visualized chest shows no significant abnormality. IMPRESSION: 1. Intragastric placement of G-tube. Signer Name: Marty Peralta II, MD Signed: 10/18/2021 11:55 PM Workstation Name: [id number]
[2021-10-19 00:05] VITALS: BP 106/72
== END 2021-10-19 00:07 | disposition home or self-care (01) ==
LOC: ED 10:24
DX: K94.23 Gastrostomy malfunction (principal); Z85.9 Personal history of malignant neoplasm, unspecified; F17.200 Nicotine dependence, unspecified, uncomplicated
CPT/HCPCS: 74018; 99282; 99283